=== PATIENT | male | born 1990 | race Caucasian/White ===

== ENCOUNTER → 2017-06-17 | Outpatient (CLI) | payer OTHER | LOC: COL.RAD 07:10 | DX: K83.0 Cholangitis (principal); R10.11 Right upper quadrant pain; R19.5 Other fecal abnormalities; R74.8 Abnormal levels of other serum enzymes; R94.8 Abnormal results of function studies of other organs and systems; Z90.49 Acquired absence of other specified parts of digestive tract | CPT/HCPCS: A9585 ==

== ENCOUNTER → 2019-07-11 | Outpatient (CLI) | payer OTHER ==
[~2019-07-11] MED LIST: ATARAX 25MG25 MG/TAB PO; CREON 60000 U-11 ECC PO; QUESTRAN4 GM/9 GM PO; URSO FORTE500 MG PO
== END ==
LOC: COL.RAD 07:23
DX: K83.01 Primary sclerosing cholangitis (principal)
CPT/HCPCS: A9585